=== PATIENT | female | born 1975 | race Caucasian/White ===

== ENCOUNTER → 2020-03-07 09:41 | Outpatient (BNVA) | payer MEDICAID, SELFPAY | PROVIDERS: Family Provider Family Medicine; PCP Family Medicine; Visit Provider Nurse Practitioner Women's Health | DX: Z34.90 Encounter for supervision of normal pregnancy, unspecified, unspecified trimester (principal); O20.0 Threatened abortion; O10.011 Pre-existing essential hypertension complicating pregnancy, first trimester; O09.291 Supervision of pregnancy with other poor reproductive or obstetric history, first trimester; O10.911 Unspecified pre-existing hypertension complicating pregnancy, first trimester; O09.899 Supervision of other high risk pregnancies, unspecified trimester; Z3A.01 Less than 8 weeks gestation of pregnancy | CPT/HCPCS: 81000; 84702; 85027 ==

== ENCOUNTER → 2020-03-14 12:25 | Outpatient (BNVA) | payer MEDICAID, SELFPAY | PROVIDERS: Family Provider Family Medicine; PCP Family Medicine; Visit Provider Nurse Practitioner Women's Health | DX: O20.0 Threatened abortion (principal) | CPT/HCPCS: 84702 ==

== ENCOUNTER → 2020-04-19 14:10 | Outpatient (BNVA) | payer MEDICAID, SELFPAY | PROVIDERS: Family Provider Family Medicine; PCP Family Medicine; Visit Provider Obstetrics & Gynecology | DX: Z12.4 Encounter for screening for malignant neoplasm of cervix (principal); O03.9 Complete or unspecified spontaneous abortion without complication; Z12.39 Encounter for other screening for malignant neoplasm of breast | CPT/HCPCS: 84702; 88175 ==

== ENCOUNTER 2020-06-23 07:15 | Outpatient (CLI) | payer MEDICAID, SELFPAY ==
--- NOTE | 2020-06-23 07:30 | MM_ITS ---
WS: [id number] BILATERAL SCREENING DIGITAL MAMMOGRAM WITH CAD HISTORY: screening COMPARISON: None available. Bilateral CC and MLO views submitted. Computer aided detection analyzed. Breast composition: There are scattered areas of fibroglandular density. No suspicious masses, microc alcifications or architectural distortion. MM/[place] [id number] IMPRESSION: BI-RADS: 1-Negative FOLLOW UP: 1 Year Follow-up
== END 2020-06-23 07:16 | disposition home or self-care (01) ==
LOC: RADSHAW 07:22
PROVIDERS: Visit Provider Obstetrics & Gynecology
DX: Z12.31 Encounter for screening mammogram for malignant neoplasm of breast (principal)
CPT/HCPCS: 77067

== ENCOUNTER → 2021-05-23 14:13 | Outpatient (BNVA) | payer BC, MEDICAID, SELFPAY | PROVIDERS: Visit Provider Obstetrics & Gynecology | DX: Z30.9 Encounter for contraceptive management, unspecified (principal); Z30.430 Encounter for insertion of intrauterine contraceptive device | CPT/HCPCS: 81025 ==

== ENCOUNTER 2025-08-04 11:49 | Emergency (ER) | payer BC, MEDICAID, SELFPAY ==
--- OUTSIDE RECORDS SUMMARY | 2020-05-09 08:30 | XMS_ITS | Continuity of Care Document ---
Author Organization [facility] Address [id number] [address] Phone Care Team Providers Care Supervisor Home [employer] Name Role Phone Diego Hearn DDS Unavailable Unavailable Allergies, Adverse Reactions, Alerts Substance Reaction Status Criticality No Known Allergies Active No Inform ation Medications Medication Instructions Dosage Effective Dates (start - stop) Status Comments lisinopril 10 mg tablet take 1 tablet by oral route every day 10 MG - Active Procedures Procedure Date Intraoral Periapical First Film Limited Oral Evaluation Problem Focused Extraction, Erupted Tooth Or Exposed Zully t (Elevati Extraction, [facility]rupted Tooth [facility] Approval Note Advance Directives Directive Yes / No Effective Date File Name No Information Encounters Encounter Description Practice Location Reason(s) For Visit Diagnoses Date Provider Providers Copied on Encounter [facility], [id number], [id number], tel:[phone] [facility] Encounter for dental exam and cleaning w/o abnormal findings Nadiya Cortez. [address] [place], [address], [place]. tel:[phone] Referring Provider: Diego Hearn, [address] [place], [address]. tel:[phone] Family History Family Member Type Diagnosis Age At Onset No Information Payers Payer name Insurance type Covered alliance party ID Ludmila saha(s) D [employer] CI [id number] Social History Type Description Quantity Date Captured Comments Alcohol Use Details No Caffeine Use Details Unknown Tobacco Use Status Current non-smoker Smoking Status Never smoker Non-Smoking Tobacco Use Details : No Details Available : No Details Available Sex Female Chief Complaint And Reason For Visit No Information Reason For Referral Reason For Referral No Information History Of Present Illness Encounter Date Complaint History Of Prese nt Illness No Information Functional Status Date Functional Assessmen t No Information Instructions Date Instruction Additional Infor mation No Information Assessments Type Assessment Date No Information Patient Care Teams Name Effective Dates (start - stop) Status Members No Information
--- NOTE | 2025-08-04 11:52 | XRR_ITS ---
PROCEDURE INFORMATION: Exam: XR Chest Exam date and time: 08/04/2025 11:59 AM Age: 49 years old Clinical indication: Shortness of breath; Additional info: Hypertension TECHNIQUE: Imaging protocol: Radiologic exam of the chest. Views: 1 view. COMPARISON: No relevant prior studies available. FINDINGS: Lungs: No focal consolidation or other acute appearing pulmonary opacity. Subtle left infrahilar rounded retrocardiac density, which is of uncertain etiology. Pleural spaces: No pneumothorax. No significant pleural effusion. Heart/Mediastinum: The cardiac silhouette is normal in size. Bones/joints: There is no acute osseous abnormality. XR/XR chest 1V portable [id number] IMPRESSION: 1. No acute radiographic cardiopulmonary abnormality. 2. Subtle left infrahilar rounded retrocardiac density, which is of uncertain etiology. Recommend correlation with prior exams, if available. While this could be related to summation of shadows, recommend follow up nonemergent chest CT to further evaluate and exclude underlying pathology.
[2025-08-04 12:08] VITALS: BP 152/99; PULSE 94; RESP 18; TEMP 36.6; O2SAT 98; BMI 31.9
--- NOTE | 2025-08-04 13:13 | W.ED.GENADLT ---
HPI - General Adult General: Chief complaint: General Medical Stated complaint: Dr davis Check Heart High BP pressure on back Time Seen by Provider: 08/04/25 13:08 History of Present Illness: 49-year-old female referred to the emergency room for elevated blood pressure complaining of a headache. She denies chest pain or abdominal pain. She is on lisinopril she is been increased to 40 mg daily. No recent head trauma she is not on any anticoagulants. She has no focal neurologic deficits. Associated symptoms: Deny chest pain, dyspnea or rash Related Data Home Medications ?Medication ?Instructions ?Recorded ?Confirmed oywawqj-bbyjlisrlsvpj-tvrogaxy 250 1 tab PO Q6H PRN Pain 04/30/21 08/04/25 mg-250 mg-65 mg tablet (Excedrin Migraine) lisinopril 40 mg tablet 40 mg PO QPM 08/04/25 08/04/25 Previous Rx's ?Medication ?Instructions ?Recorded levonorgestrel (Mirena) 1 device intrauterine .every 5 05/23/21 years #1 ea metoprolol succinate 25 mg 12.5 mg (1/2 x 25 mg) PO DAILY #15 08/04/25 tablet,extended release 24 hr tabs Allergies Allergy/AdvReac Type Severity Reaction Status Date / Time No Known Allergies Allergy Verified 07/16/23 08:46 Review of Systems Const: Denies: fever(s) or chills Card: Denies: chest pain Resp: Denies: dyspnea GI: Denies: abdominal pain : Denies: dysuria, urinary frequency or urinary urgency Musc: Denies: neck pain or back pain Skin/Breast: Denies: rash PFSH ED PFSH: Medical History No pertinent past medical history Denies diabetes, asthma, seizures, DVT/PE. 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 Currently managed on lisinopril Surgical History History of appendectomy (~1990) Open procedure via right lower quadrant incision performed in the [facility] Family History Brother Hypertension Denies family history of Colon cancer Ovarian cancer Diabetes Heart disease Hyperlipidemia Breast cancer Uterine cancer Thyroid disease Stroke Social History Smoking and tobacco/nicotine status: never used tobacco/nicotine Alcohol intake: never Substance/Drug Use: never Physical Exam Const: GENERAL APPEARANCE: cooperative ORIENTATION/CONSCIOUSNESS: Yes awake, Yes oriented to person, Yes oriented to place and Yes oriented to time HENMT: COMMON NORMALS: normocephalic, atraumatic and hearing grossly normal bilaterally HEAD & SCALP: normocephalic and atraumatic Resp: COMMON NORMALS: normal respiratory effort, No retractions, No use of accessory muscles and clear to auscultation bilaterally AUSCULTATION: clear to auscultation bilaterally Cardio: COMMON NORMALS: regular rate, regular rhythm and No murmurs present (Cardio) RATE: regular rate RHYTHM: regular rhythm GI: COMMON NORMALS: Soft to palpation and No hepatosplenomegaly present AUSCULTATION: Yes normoactive bowel sounds PALPATION: Yes Soft to palpation, No Tenderness to palpation present (GI), No Guarding due to palpation present (GI) and Yes No hepatosplenomegaly present Extremity: COMMON NORMALS: normal to inspection, capillary refill normal, no clubbing, cyanosis or edema, no calf tenderness and no pedal edema Neuro: SENSORIUM/ORIENTATION: Yes oriented to person, Yes oriented to place and Yes oriented to time Skin: COMMON NORMALS: no rashes or lesions noted GENERAL SKIN EXAM: no rashes or lesions noted Course Vital Signs: Vital signs: Vital Signs Temperature 97.8 F 08/04/25 12:08 Pulse Rate 78 08/04/25 15:39 Respiratory Rate 18 08/04/25 12:08 Blood Pressure 140/83 08/04/25 15:39 Pulse Oximetry 98 08/04/25 15:39 Oxygen Delivery Me thod Room Air 08/04/25 12:08 MDM - General Adult Medical Decision Making Chest x-ray showed questionable area in the left infrahilar region radiology suggested CT this was done did not show any abnormality. Blood pressure improved patient is not feeling better her symptoms have resolved she had been given ketorolac and diphenhydramine. Laboratory test reviewed CBC chemistry panel unremarkable. Troponins showed no significant change in delta norm below detectable limits. EKG did not show any acute change. Will discharge patient home have her started on metoprolol 12.5 once daily and follow-up with her doctor within the next week return if has further problems. Medical Records I reviewed the patient's medical records. Lab Data I reviewed the patient's lab results. 08/04/25 13:16 08/04/25 13:16 Radiology Impressions Chest X-Ray 08/04/25 11:52 IMPRESSION: 1. No acute radiographic cardiopulmonary abnormality. 2. Subtle left infrahilar rounded retrocardiac density, which is of uncertain etiology. Recommend correlation with prior exams, if available. While this could be related to summation of shadows, recommend follow up nonemergent chest CT to further evaluate and exclude underlying pathology. Chest CT 08/04/25 13:26 IMPRESSION: No acute chest findings Head CT 08/04/25 13:26 IMPRESSION: 1. No evidence of intracranial hemorrhage or mass effect. 2. No acute intracranial findings. Laboratory Results WBC 6.12 10^3/uL (3.29-11.43) 08/04/25 13:16 RBC 4.47 10^6/uL (3.85-5.65) 08/04/25 13:16 Hgb 13.70 g/dL (11.27-16.99) 08/04/25 13:16 Hct 40.1 % (36-47) 08/04/25 13:16 MCV 89.7 fl (85-98) 08/04/25 13:16 MCH 30.6 pg (27-33) 08/04/25 13:16 MCHC 34.2 g/dL (30-55) 08/04/25 13:16 RDW 11.6 % (12.1-15.1) L 08/04/25 13:16 Plt Count 267 10^3/cmm (157-399) 08/04/25 13:16 MPV 10.1 fL (7.4-10.4) 08/04/25 13:16 Neut % (Auto) 60.2 % 08/04/25 13:16 Lymph % (Auto) 26.3 % 08/04/25 13:16 [place] % (Auto) 10.9 % 08/04/25 13:16 Eos % (Auto) 1.6 % 08/04/25 13:16 Baso % (Auto) 0.7 % 08/04/25 13:16 Neut # (Auto) 3.68 10^3/uL (1.8-7.7) 08/04/25 13:16 Lymph # (Auto) 1.6 10^3/uL (0.8-4.8) 08/04/25 13:16 [place] # (Auto) 0.7 10^3/uL (0.2-0.9) 08/04/25 13:16 Eos # (Auto) 0.1 10^3/uL (0.0-0.8) 08/04/25 13:16 Baso # (Auto) 0.0 10^3/uL (0.0-0.1) 08/04/25 13:16 Nucleated RBC % (auto) 0 % 08/04/25 13:16 Nucleated RBCs # 0.0 /100WBC 08/04/25 13:16 Sodium 141 mmol/L (136-145) 08/04/25 13:16 Potassium 4.3 mmol/L (3.5-5.1) 08/04/25 13:16 Chloride 103 mmol/L (98-107) 08/04/25 13:16 Carbon Dioxide 25 mmol/L (22-29) 08/04/25 13:16 Anion Gap 17.3 (5-19) 08/04/25 13:16 BUN 12 mg/dL (6-20) 08/04/25 13:16 Creatinine 0.8 mg/dL (0.5-0.9) 08/04/25 13:16 GFR Calculation 76.2 mL/min (90-130) L 08/04/25 13:16 Glucose 84 mg/dL (65-115) 08/04/25 13:16 Calculated Osmolality 291 mOsm/kg (285-295) 08/04/25 13:16 Calcium 9.9 mg/dL (8.5-10.5) 08/04/25 13:16 Total Bilirubin 0.3 mg/dL (0.15-1.2) 08/04/25 13:16 AST 19 U/L (0-32) 08/04/25 13:16 ALT 21 U/L (0-33) 08/04/25 13:16 Alkaline Phosphatase 97 U/L (35-105) 08/04/25 13:16 Troponin T Baseline < 6 ng/L (0-10) 08/04/25 13:16 Troponin T 120 Minute < 6.0 ng/L (0-10) 08/04/25 15:00 Delta Troponin T 0 ABS# (0-10) 08/04/25 15:00 NT-Pro-B Natriuret Pep 56 pg/mL (0-125) 08/04/25 13:16 Total Protein 7.4 g/dL (6.6-8.7) 08/04/25 13:16 Albumin 4.5 g/dL (3.5-5.2) 08/04/25 13:16 Globulin 2.9 g/dL (1.3-4.6) 08/04/25 13:16 All radiology interpretation(s) finalized by discharge EKG Data EKG 1: Interpretation: EKG 08/04/2025 1359 sinus rhythm rate of 81 parable [address]Tc [address] No acute [address] elevation no T wave inversion no previous EKG for comparison. Computer generated interpretation: Chest X-Ray 08/04/25 11:52 IMPRESSION: 1. No acute radiographic cardiopulmonary abnormality. 2. Subtle left infrahilar rounded retrocardiac density, which is of uncertain etiology. Recommend correlation with prior exams, if available. While this could be related to summation of shadows, recommend follow up nonemergent chest CT to further evaluate and exclude underlying pathology. Chest CT 08/04/25 13:26 IMPRESSION: No acute chest findings Head CT 08/04/25 13:26 IMPRESSION: 1. No evidence of intracranial hemorrhage or mass effect. 2. No acute intracranial findings. EKG 2: Computer generated interpretation: Chest X-Ray 08/04/25 11:52 IMPRESSION: 1. No acute radiographic cardiopulmonary abnormality. 2. Subtle left infrahilar rounded retrocardiac density, which is of uncertain etiology. Recommend correlation with prior exams, if available. While this could be related to summation of shadows, recommend follow up nonemergent chest CT to further evaluate and exclude underlying pathology. Chest CT 08/04/25 13:26 IMPRESSION: No acute chest findings Head CT 08/04/25 13:26 IMPRESSION: 1. No evidence of intracranial hemorrhage or mass effect. 2. No acute intracranial findings. Discharge Plan Discharge Patient Disposition: Home Clinical Impression: Hypertension, Headache Condition: Stable Prescriptions: New metoprolol succinate 25 mg tablet extended release 24 hr 12.5 mg PO DAILY Qty: 15 0RF No Action Mirena 20 mcg/24 hours (6 yrs) 52 mg intrauterine device 1 device intrauterine .every 5 years Qty: 1 0RF Excedrin Migraine 250-250-65 mg tablet 1 tab PO Q6H PRN (Reason: Pain) lisinopril 40 mg tablet 40 mg PO QPM Discharge Orders: Discharge ED (Routine); Ordered 08/04/25 Ordered By: Isai Hood Discharge Diet: Usual diet Discharge Activity: Resume usual activity Patient Instructions: Opioid Safety, Pain Management, Patient Portal & Shruti Instructions Activity Restrictions/Additional Instructions: Thank you for choosing [facility] for your healthcare needs today. It is very important that you follow up as instructed or that you return to the Emergency Department should you have concerns or if your condition changes or worsens in any way. Emergency department visits are focused on emergent conditions, in some cases you may require further evaluation on an outpatient basis. You were seen in the emergency room for complaints of a headache and elevated blood pressure. Evaluation emergency room including imaging did not show any significant abnormality your headache improved as your blood pressure resolved. Will discharge home recommend you start metoprolol succinate half a tablet once a day follow-up with your doctor within a week. Heart enzymes and EKG were normal. (Please note that included in your discharge packet is information concerning opioid safety and pain management. This information is given to all patients were discharged from the ER regardless of their discharge diagnosis or the medicines they usually take or are prescribed.) Print Language: Bahraini Coding Level of Care Code ED [facility] Consultant for Niko Tineo
[2025-08-04 13:21] LABS: Hematocrit 40.1 % (36-47); Hemoglobin 13.70 g/dL (11.27-16.99); Mean Corpuscular HGB Conc 34.2 g/dL (30-55); Mean Corpuscular Hemoglobin 30.6 pg (27-33); Mean Corpuscular Volume 89.7 fl (85-98); Nucleated Red Blood Cells % 0 %; Platelet Count 267 10^3/cmm (157-399); Red Blood Count 4.47 10^6/uL (3.85-5.65); White Blood Count 6.12 10^3/uL (3.29-11.43)
--- NOTE | 2025-08-04 13:26 | CT_ITS ---
WS: [id number] CT CHEST TECHNIQUE: Contrast enhanced CT of the chest with coronal and sagittal reformatted images. CLINICAL INFORMATION: Abnormal chest x-ray COMPARISON: Radiograph earlier today DLP: 405.[address] scans at [facility] use at least one of these dose optimization techniques: automated exposure control; mA and/or kV adjustment per patient size (includes targeted exams where dose is matched to clinical indication); or iterative reconstruction. FINDINGS: No suspicious chest findings to correspond to the radiograph findings. Normal caliber thoracic aorta. Proximal main pulmonary arteries are normal. Normal thyroid. No mediastinal or hilar lymphadenopathy. No axillary lymphadenopathy. Lungs are well aerated. No acute pulmonary infiltrates. No focal pneumonia or pleural fluid. No suspicious pulmonary parenchymal abnormalities. Tiny esophageal hiatal hernia. Fatty liver. Adrenal glands are normal. Celiac and SMA are patent in the upper abdomen. Mild thoracic kyphosis. CT/CT chest w con* [id number] IMPRESSION: No acute chest findings
--- NOTE | 2025-08-04 13:26 | CT_ITS ---
WS: [id number] CT HEAD TECHNIQUE: Noncontrast CT of the head obtained from the skullbase to the vertex. CLINICAL INFORMATION: Sudden onset headache COMPARISON: None. DLP: 1021.[address] scans at [facility] use at least one of these dose optimization techniques: automated exposure control; mA and/or kV adjustment per patient size (includes targeted exams where dose is matched to clinical indication); or iterative reconstruction. FINDINGS: No evidence of intracranial hemorrhage or mass effect. Ventricular system and basal cisterns are patent. No extra-axial fluid collections. No evidence of mass or mass effect. Normal davalos-white differentiation. Paranasal sinuses and mastoid air cells are well aerated. .Normal visualized soft tissues. CT/CT head wo con* [id number] IMPRESSION: 1. No evidence of intracranial hemorrhage or mass effect. 2. No acute intracranial findings.
[2025-08-04] MEDS: diphenhydrAMINE 50 mg/mL SDV 1mL IVP (13:30)
[2025-08-04] MEDS: iohexol 350 mg/mL 500 mL Btl (per mL) IV (13:41)
[2025-08-04 13:42] LABS: Troponin(5th) Baseline < 6 ng/L (0-10)
--- NOTE | 2025-08-04 13:52 | ECG_ITS ---
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
[2025-08-04 14:13] VITALS: BP 147/95; PULSE 78; O2SAT 98
[2025-08-04 14:43] LABS: Alanine Aminotransferase 21 U/L (0-33); Albumin Level 4.5 g/dL (3.5-5.2); Alkaline Phosphatase 97 U/L (35-105); Anion Gap 17.3 (5-19); Aspartate Amino Transferase 19 U/L (0-32); Blood Urea Nitrogen 12 mg/dL (6-20); Calcium 9.9 mg/dL (8.5-10.5); Carbon Dioxide 25 mmol/L (22-29); Chloride 103 mmol/L (98-107); Creatinine Clr Calc Pharmacy 96.0220; Globulin 2.9 g/dL (1.3-4.6); Glucose 84 mg/dL (65-115); NT Pro B Type Natriuretic Pept 56 pg/mL (0-125); Osmolality Calculated 291 mOsm/kg (285-295); Potassium 4.3 mmol/L (3.5-5.1); Sodium 141 mmol/L (136-145); Total Protein 7.4 g/dL (6.6-8.7)
[2025-08-04 15:21] LABS: Troponin 5 2HR < 6.0 ng/L (0-10); Troponin 5 2HR Delta 0 ABS# (0-10)
[2025-08-04 15:39] VITALS: BP 140/83; PULSE 78; O2SAT 98
== END 2025-08-04 15:43 | disposition home or self-care (01) ==
PROVIDERS: Emergency Medicine; Emergency Provider Family Medicine
DX: I10 Essential (primary) hypertension (principal); R51.9 Headache, unspecified
CPT/HCPCS: 36415; 70450; 71045; 71260; 80053; 83880; 84484; 85025; 93005; 96374; 96375; 99285; J1200; J1885

== ENCOUNTER → 2025-10-13 09:38 | Outpatient (BNVA) | payer BC, MEDICAID, SELFPAY | PROVIDERS: Visit Provider Nurse Practitioner Women's Health | DX: Z01.419 Encounter for gynecological examination (general) (routine) without abnormal findings (principal) | CPT/HCPCS: 87624 ==

== ENCOUNTER 2025-10-24 09:33 | Outpatient (CLI) | payer BC, MEDICAID, SELFPAY ==
--- NOTE | 2025-10-24 09:40 | MM_ITS ---
WS: [id number] BILATERAL SCREENING DIGITAL TOMOSYNTHESIS MAMMOGRAM WITH CAD HISTORY: Z12.31 - Encounter for screening mammogram for malignant ... COMPARISON: 06/23/2020 Bilateral CC and MLO views with tomosynthesis and synthetic mammography submitted. Computer aided detection analyzed. Breast composition: There are scattered areas of fibroglandular density. No suspicious masses, microcalcifications or architectural distortion. MM/MM scr BI tomosynthesis [id number] IMPRESSION: BI-RADS: 2 - Benign. FOLLOW UP: 1 Year Follow-up
== END 2025-10-24 09:34 | disposition home or self-care (01) ==
PROVIDERS: PCP Family Medicine; Visit Provider Nurse Practitioner Women's Health
DX: Z12.31 Encounter for screening mammogram for malignant neoplasm of breast (principal); R92.323 Mammographic fibroglandular density, bilateral breasts
CPT/HCPCS: 77063; 77067